=== PATIENT | male | born 1950 | race Caucasian/White ===

== ENCOUNTER → 2017-09-02 | Outpatient (CLI) | payer MEDICARE, BC ==
[~2017-09-02] MED LIST: ABILIFY 10MG TA10 MG PO; ACTOS30 MG PO; ALTACE 5MG5 MG PO; ALTACE2.5 MG PO; ANDRO GEL; ASPIRIN 32325 MG/TAB PO; AZULFIDINE PO; DOLOPHINE; ECOTRIN325 MG PO; EFFEXOR-XR150 MG PO; FLONASE NASAL S16 GM NS; GABAPENTIN300 M1 PO; GLUCOPHAGE1000 MG PO; MORPHINE SULFAT30 M5 PO; MULTIPLE VITAMI1 CAP PO; NEURONTIN300 MG/CAP PO; NEURONTIN600 MG/TAB PO; NIACIN50 MG PO; NORCO 325 MG-7.1 TAB PO; RYBIX ODT50 MG PO; VYTORIN PO; XANAX0.5 MG PO; ZOCOR 40MG40 MG PO; ZOLOFT 100MG100 MG PO
== END ==
LOC: COL.RAD 09:15
DX: M25.562 Pain in left knee (principal); Z96.652 Presence of left artificial knee joint
CPT/HCPCS: A9503

== ENCOUNTER → 2018-08-12 | Outpatient (CLI) | payer MEDICARE, BC | LOC: COL.RAD 07:52 | DX: M25.552 Pain in left hip (principal) | CPT/HCPCS: J3301; Q9967 ==

== ENCOUNTER → 2024-06-13 | Outpatient (CLI) | payer MEDICARE, BC ==
[~2024-06-13] MED LIST changes: +Iohexol 300 - 10 ML VIAL IV ONE; +Triamcinolone 40 MG/ML 1 ML VIAL IJ ONE; +ZOFRAN 4MG T4 MG/TAB PO
== END ==
LOC: COL.RAD 12:29
DX: M25.551 Pain in right hip (principal)
CPT/HCPCS: J0665; J3301; Q9967